=== PATIENT | female | born 1995 | race Caucasian/White ===

== ENCOUNTER 2024-03-16 09:41 | Emergency (ER) | payer SELFPAY ==
[2024-03-16] MEDS ORDERED: Acetaminophen 500 MG TAB ONE (10:06)
[2024-03-16] MEDS ORDERED: Phenazopyridine HCl 100 MG TAB ONE (10:06)
[2024-03-16 10:16] LABS: Bacteria/HPF None Seen HPF (None Seen); Bilirubin Negative (Negative); Blood, Urine Negative (Negative); CAUTI Indications for Culture Pelvic or flank pain; Clarity Clear (Clear); Glucose, Urine (Dipstick) Normal (Negative); Ketone, Urine Negative (Negative); Leukocyte Negative Leu/uL (Negative); Nitrite Negative (Negative); Protein, Urine (Dipstick) Negative (Neg-Trace); RBC/HPF 0-3 HPF (0-3); Specific Gravity, Urine 1.023 (1.002-1.036); Squamous Epithelial 0-3 HPF (0-3); Urobilinogen Normal mg/dL (Less than 2); WBC/HPF 0-3 HPF (0-3)
[2024-03-16 10:17] LABS: Pregnancy Test - Urine (BHCG) Negative (Negative); Pregu Control Background? CLEAR/WHITE (CLR/WHITE); Pregu Control Bar Appear? YES (CONTROL BAR); Specific Gravity 1.023 (1.002-1.036); Urine Culture Reflex No No
[2024-03-16 15:14] LABS: Chlamydia by PCR, Vaginal Swab Not Detected (NotDetected); GC by PCR, Vaginal Swab Not Detected (NotDetected)
== END 2024-03-16 12:41 | disposition home or self-care (01) ==
LOC: ERS 09:41
DX: N76.0 Acute vaginitis (principal); B96.89 Other specified bacterial agents as the cause of diseases classified elsewhere
CPT/HCPCS: 51798; 81001; 81025; 87086; 87480; 87491; 87510; 87591; 87660; 99283